=== PATIENT | female | born 1930 | race Caucasian/White ===

== ENCOUNTER 2019-11-28 10:31 | Emergency (ER) | payer MEDICARE ==
[2019-11-28 11:18] LABS: #Basophils 0.1 thou/uL (0.0-0.2); #Eosinphils 0.4 thou/uL (0.0-0.7); #Lymphocytes 4.2 thou/uL (1.20-3.40); #Monocytes 0.7 thou/uL (0.11-0.59); #Neutrophils 2.2 thou/uL (1.40-6.50); %Eosinophils 5.3 % (0.0-10.0); %Lymphocytes 55.4 % (21.0-51.0); %Monocytes 9.4 % (0.0-10.0); %Neutrophils 28.9 % (42.0-75.0); Hemoglobin 9.8 g/dL (12.0-16.0); Mean Corpuscular HGB CONC 30.8 g/dL (32.0-36.0); Mean Platelet Volume 9.3 fL (7.4-10.4); Platelet Count 173 thou/uL (130-400); Red Blood Cell (RBC) Count 3.39 mill/uL (4.20-5.40); White Blood Cell (WBC) Count 7.6 thou/uL (4.8-10.8)
[2019-11-28 11:27] LABS: ALT (SGPT) 12 U/L (8-55); AST (SGOT) 18 U/L (5-34); Albumin 3.7 g/dL (3.4-4.8); Alkaline Phosphatase 57 U/L (40-110); Anion Gap 15 mmol/L (10-20); BUN (Urea Nitrogen) 30 mg/dL (9.8-20.1); Bilirubin, Total 0.5 mg/dL (0.2-1.2); Calc. Creatinine Clearance 0 mL/min (70-130); Calcium 9.1 mg/dL (7.8-10.44); Carbon Dioxide 23 mmol/L (23-31); Chloride 105 mmol/L (98-107); Estimated GFR-MDRD 32; Globulin 2.7 g/dL (2.4-3.5); Glucose 104 mg/dL (83-110); Potassium 4.8 mmol/L (3.5-5.1); Protein, Total 6.4 g/dL (6.0-8.3); Sodium 138 mmol/L (136-145)
--- NOTE | 2019-11-28 11:31 | RAD ---
CHEST 1 VIEW: Date: 11/28/2019 INDICATION: History of cardiac rehab and heart evaluation. COMPARISON: Prior exam dated 09/11/2019. FINDINGS: Chronic lung changes stable appearing. Cardiomegaly persists. Overlying cardiac leads limit evaluatio n of costophrenic angles. No pneumothorax is evident. Osseous structures are similar appearing. Pulmo nary vasculature appears within normal limits. IMPRESSION: Stable cardiomegaly. POS: BH
[2019-11-28 11:44] LABS: CKMB 1.2 ng/mL (0-6.6)
== END 2019-11-28 12:40 | disposition home or self-care (01) ==
LOC: NAV ERS 10:31
DX: R00.1 Bradycardia, unspecified (principal); R79.89 Other specified abnormal findings of blood chemistry; K21.9 Gastro-esophageal reflux disease without esophagitis; E03.9 Hypothyroidism, unspecified; I25.2 Old myocardial infarction; I48.91 Unspecified atrial fibrillation; E78.5 Hyperlipidemia, unspecified; E78.00 Pure hypercholesterolemia, unspecified; I10 Essential (primary) hypertension; Z79.01 Long term (current) use of anticoagulants; Z79.899 Other long term (current) drug therapy; Z85.6 Personal history of leukemia
CPT/HCPCS: 71045; 80053; 82553; 84484; 85025; 93005